=== PATIENT | female | born 1995 | race Caucasian/White ===

== ENCOUNTER 2017-01-18 19:26 | Emergency (ER) | payer BC, OTHER ==
[~2017-01-18] VITALS: Ht 157.5 cm; Wt 62.1 kg
[2017-01-18] MEDS ORDERED: CELEXA20 MG PO (19:41)
[2017-01-18] MEDS ORDERED: BUSPIRONE HCL10 MG PO (19:41)
[2017-01-18] MEDS ORDERED: SINGULAIR 10 MG10 M1 PO (19:42)
[2017-01-18 19:47] LABS: URINE BILIRUBIN NEGATIVE (Negative); URINE BLOOD 3+ (Negative); URINE COLOR YELLOW; URINE GLUCOSE-RANDOM* NEGATIVE (Negative); URINE KETONES NEGATIVE (Negative); URINE NITRITE NEGATIVE (Negative); URINE PROTEIN (DIPSTICK) NEGATIVE (Negative); URINE SPECIFIC GRAVITY 1.025 (1.003-1.035); URINE UROBILINOGEN 0.2 E.U./dl (0.2-1.0)
[2017-01-18 19:57] LABS: BACTERIA >30 Many /HPF (None Seen); CASTS None Seen /LPF (None Seen); CRYSTALS None Seen /LPF (None Seen); SQUAMOUS >10 Many /LPF (0-3); URINE RBC 3-10 Few /HPF (0-2); YEAST Present (None Seen)
[2017-01-18 20:08] LABS: HEMATOCRIT 37.2 % (37.0-47.0); HEMOGLOBIN 12.8 gm/dL (12.0-15.0); MCH 31.1 pg (26.0-34.0); MCHC 34.5 g/dL (28.0-37.0); MCV 90.1 fL (80.0-100.0); PLATELET COUNT 291 thou/uL (150-400); RBC 4.13 mil/uL (4.20-5.00); RDW 12.8 % (10.5-14.5); WBC 8.8 thou/uL (4.0-11.0)
[2017-01-18 20:09] LABS: MANUAL DIFF YES
[2017-01-18 20:12] LABS: ANION GAP 10 mmol/L (7-16); BUN 11 mg/dL (7-18); CHLORIDE 102 mmol/L (98-107); CO2 27 mmol/L (21-32); CREATININE 0.8 mg/dL (0.6-1.0); GLUCOSE 100 mg/dL (74-106); POTASSIUM 3.6 mmol/L (3.5-5.1); SODIUM 139 mmol/L (136-145)
[2017-01-18 20:16] LABS: ALBUMIN 3.7 g/dL (3.4-5.0); ALKALINE PHOSPHATASE 75 U/L (46-116); DIRECT BILIRUBIN < 0.1 mg/dL (<0.1-0.3); SGOT 19 U/L (15-37); SGPT 20 U/L (30-65); TOTAL BILIRUBIN 0.3 mg/dL (<0.1-1.0); TOTAL PROTEIN 7.8 g/dL (6.4-8.2)
[2017-01-18] MEDS ORDERED: MACROBID 100 M100 M1 PO (20:34)
[2017-01-18] MEDS ORDERED: DIFLUCAN200 MG PO (20:34)
[2017-01-18 20:41] LABS: ABSOLUTE NEUTROPHILS 4.8 thou/uL (1.4-8.2); ANISOCYTOSIS SLIGHT; MICROCYTES SLIGHT; TOTAL CELL COUNT 100
[2017-01-18 20:51] VITALS: BP 124/75
== END 2017-01-18 20:54 | disposition home or self-care (01) ==
LOC: ER 19:26
PROVIDERS: Nurse Practitioner
DX: N39.0 Urinary tract infection, site not specified (principal); B37.9 Candidiasis, unspecified; J45.909 Unspecified asthma, uncomplicated; F41.9 Anxiety disorder, unspecified; F10.99 Alcohol use, unspecified with unspecified alcohol-induced disorder; Z90.89 Acquired absence of other organs; Z88.4 Allergy status to anesthetic agent

== ENCOUNTER 2018-11-26 16:10 | Emergency (ER) | payer BC, OTHER ==
[~2018-11-26] VITALS: Ht 160 cm; Wt 63.5 kg
[~2018-11-26 16:10] MED LIST: BUSPIRONE HCL10 MG PO; CELEXA20 MG PO; DIFLUCAN200 MG PO; MACROBID 100 M100 M1 PO; SINGULAIR 10 MG10 M1 PO
[2018-11-26 16:40] LABS: URINE BILIRUBIN NEGATIVE (Negative); URINE BLOOD NEGATIVE (Negative); URINE CLARITY CLEAR; URINE COLOR YELLOW; URINE GLUCOSE-RANDOM* NEGATIVE (Negative); URINE KETONES NEGATIVE (Negative); URINE LEUKOCYTES-REFLEX NEGATIVE (Negative); URINE NITRITE-REFLEX NEGATIVE (Negative); URINE PROTEIN (DIPSTICK) NEGATIVE (Negative); URINE UROBILINOGEN 0.2 E.U./dl (0.2-1.0)
[2018-11-26 17:39] LABS: ABSOLUTE NEUTROPHILS 8.4 thou/uL (1.4-8.2); BASOPHILS 0.5 % (0.0-2.0); EOSINOPHILS 0.4 % (0.0-3.0); HEMATOCRIT 41.1 % (37.0-47.0); HEMOGLOBIN 14.5 gm/dL (12.0-15.0); LYMPHOCYTES 16.6 % (24.0-44.0); MCH 31.5 pg (26.0-34.0); MCHC 35.2 g/dL (28.0-37.0); MCV 89.5 fL (80.0-100.0); MONOCYTES 7.2 % (1.0-8.0); PLATELET COUNT 299 thou/uL (150-400); POLYS 75.3 % (36.0-66.0); RBC 4.59 mil/uL (4.20-5.00); RDW 12.8 % (10.5-14.5); WBC 11.2 thou/uL (4.0-11.0)
[2018-11-26 17:46] LABS: CALCIUM 10.4 mg/dL (8.5-10.1); CREATININE 0.7 mg/dL (0.6-1.0); POTASSIUM 3.3 mmol/L (3.5-5.1)
[2018-11-26 17:52] LABS: ALBUMIN 4.3 g/dL (3.4-5.0); TOTAL BILIRUBIN 0.5 mg/dL (<0.1-1.0); TOTAL PROTEIN 8.1 g/dL (6.4-8.2)
[2018-11-26] MEDS ORDERED: ZOFRAN ODT4 MG PO (18:27)
[2018-11-26 18:54] VITALS: BP 102/72
== END 2018-11-26 18:55 | disposition home or self-care (01) ==
LOC: ER 16:10
PROVIDERS: Nurse Practitioner Family
DX: R11.2 Nausea with vomiting, unspecified (principal); R19.7 Diarrhea, unspecified; R10.84 Generalized abdominal pain; J45.909 Unspecified asthma, uncomplicated; Z88.8 Allergy status to other drugs, medicaments and biological substances

== ENCOUNTER 2019-08-20 13:02 | Emergency (ER) | payer BC, OTHER ==
[~2019-08-20] VITALS: Ht 160 cm; Wt 66.7 kg
[~2019-08-20 13:02] MED LIST changes: +ZOFRAN ODT4 MG PO
[2019-08-20] MEDS ORDERED: XANAX 0.5 MG0.5 M1 PO (13:16)
[2019-08-20 14:48] LABS: ABSOLUTE NEUTROPHILS 8.1 thou/uL (1.4-8.2); BASOPHILS 0.5 % (0.0-2.0); EOSINOPHILS 0.7 % (0.0-3.0); HEMATOCRIT 44.4 % (37.0-47.0); HEMOGLOBIN 15.1 gm/dL (12.0-15.0); LYMPHOCYTES 23.2 % (24.0-44.0); MCV 91.2 fL (80.0-100.0); MONOCYTES 6.8 % (1.0-8.0); PLATELET COUNT 282 thou/uL (150-400); POLYS 68.8 % (36.0-66.0); RBC 4.87 mil/uL (4.20-5.00); RDW 12.9 % (10.5-14.5); WBC 11.7 thou/uL (4.0-11.0)
[2019-08-20 14:55] LABS: URINE BILIRUBIN NEGATIVE (Negative); URINE BLOOD TRACE (Negative); URINE COLOR YELLOW; URINE GLUCOSE-RANDOM* NEGATIVE (Negative); URINE KETONES 1+ (Negative); URINE NITRITE-REFLEX NEGATIVE (Negative); URINE PROTEIN (DIPSTICK) NEGATIVE (Negative); URINE UROBILINOGEN 0.2 E.U./dl (0.2-1.0)
[2019-08-20 14:56] LABS: URINE CLARITY HAZY; URINE LEUKOCYTES-REFLEX 2+ (Negative)
[2019-08-20 15:03] LABS: AMP/METHAMP Negative (Negative); BARBITURATES Negative (Negative); BENZODIAZEPINES Negative (Negative); COCAINE Negative (Negative); METHADONE Negative (Negative); OPIATES Negative (Negative); PCP Negative (Negative)
[2019-08-20 15:03] LABS: ANION GAP 12 mmol/L (7-16); BUN 11 mg/dL (7-18); CALCIUM 9.8 mg/dL (8.5-10.1); CHLORIDE 98 mmol/L (98-107); CO2 27 mmol/L (21-32); CREATININE 0.8 mg/dL (0.6-1.0); GLUCOSE 102 mg/dL (74-106); POTASSIUM 3.6 mmol/L (3.5-5.1); SODIUM 137 mmol/L (136-145)
[2019-08-20 15:05] LABS: SQUAMOUS >10 Many /LPF (0-3)
[2019-08-20 15:07] LABS: URINE RBC 0-2 Rare /HPF (0-2); URINE WBC-REFLEX 6-15 Few /HPF (0-5)
[2019-08-20 15:08] LABS: YEAST-REFLEX Present (None Seen)
[2019-08-20 15:10] LABS: CRYSTALS None Seen /LPF (None Seen)
[2019-08-20 15:11] LABS: ALBUMIN 4.6 g/dL (3.4-5.0); SALICYLATE < 2.8 mg/dL (2.8-20.0); SGOT 27 U/L (15-37); SGPT 29 U/L (30-65); TOTAL BILIRUBIN 0.6 mg/dL (<0.1-1.0); TOTAL PROTEIN 8.8 g/dL (6.4-8.2)
[2019-08-20 15:11] LABS: CASTS None Seen /LPF (None Seen)
[2019-08-20 19:11] VITALS: BP 122/86
== END 2019-08-20 19:11 | disposition home or self-care (01) ==
LOC: ER 13:02
PROVIDERS: Physician Assistant
DX: F32.9 Major depressive disorder, single episode, unspecified (principal); J45.909 Unspecified asthma, uncomplicated; F41.9 Anxiety disorder, unspecified; Z90.89 Acquired absence of other organs; Z88.8 Allergy status to other drugs, medicaments and biological substances